=== PATIENT | male | born 2000 | race African-American/Black ===

== ENCOUNTER 2018-01-20 17:41 | Emergency (ER) | payer BC, OTHER ==
[2018-01-20] MEDS ORDERED: NA CHLORIDE 0.9% 1,000 ML ONE (18:45)
[2018-01-20] MEDS ORDERED: IBUPROFEN 400 MG TAB ONE (18:45)
[2018-01-20 19:03] LABS: Bicarbonate 26 mEq/L (21-31); Glucose Level 97 mg/dL (65-120); Potassium 3.6 mEq/L (3.6-5.0); Sodium Level 135 mEq/L (135-145)
[2018-01-20 19:06] LABS: BUN Blood Urea Nitrogen 12 mg/dL (6-20); Creatine Phosphokinase 193 IU/L (22-269); Glomerular Filtration Rate > 90 mL/min (=/>90)
--- NOTE | 2018-01-20 21:06 | EDPHYS ---
Physician Documentation [facility] Name: Sumi Mccrary Age: 17 yrs Sex: Male : 2000 Arrival Date: 01/20/2018 Time: 17:47 Bed 15 Private MD: ED Physician Wally Schultz HPI: 01/20 18:34 This 17 yrs old Black Male presents to ER via Ambulatory with complaints of Shoulder rn Pain. 18:34 The patient or guardian complains of pain. left shoulder. Onset: The symptoms/episode rn began/occurred today. Modifying factors: the symptoms are alleviated by remaining still, The symptoms are aggravated by lifting weight, movement, rotation of arm. Severity of symptoms: At their worst the symptoms were mild, in the emergency department the symptoms are unchanged. The patient has experienced similar episodes in the past. Reports thinks dislocated left shoulder at work, arm above his head, didn't go back in like it normally does, reports noted at site that had fever to 102, but feels fine, no cough/runny nose/sore throat/abd pain/vomiting/diarrhea/neck pain. . 18:34 Reports legs feel tired and cramping, but able to walk. No back injury/pain.. rn Historical: - Allergies: 17:52 No Known Allergies; hb - Home Meds: 17:52 CONCERTA Oral [Active]; hb - PMHx: 17:52 ADD/ADHD; hb - PSHx: 17:52 None; hb - Immunization history:: Adult Immunizations up to date. - Social history:: Smoking status: Patient/guardian denies using tobacco. - Family history:: not pertinent. - Hospitalizations: : No recent hospitalization is reported. ROS: 18:34 Constitutional: Negative for chills, and weight loss, Eyes: Negative for injury, pain, rn redness, and discharge, Neck: Negative for injury, pain, and swelling, Cardiovascular: Negative for chest pain, palpitations, and edema, Respiratory: Negative for shortness of breath, cough, wheezing, and pleuritic chest pain, Abdomen/GI: Negative for abdominal pain, nausea, vomiting, diarrhea, and constipation, Back: Negative for injury and pain, MS/Extremity: Negative for deformity, Skin: Negative for injury, rash, and discoloration, Neuro: Negative for headache, seizure. Exam: 18:34 Constitutional: This is a well developed, well nourished patient who is awake, alert, rn and in no acute distress. Head/Face: Normocephalic, atraumatic. Eyes: Pupils equal round and reactive to light, extra-ocular motions intact. Lids and lashes normal. Conjunctiva and sclera are non-icteric and not injected. Cornea within normal limits. Periorbital areas with no swelling, redness, or edema. Neck: Trachea midline, no thyromegaly or masses palpated, and no cervical lymphadenopathy. Supple, full range of motion without nuchal rigidity, or vertebral point tenderness. No Meningismus. Cardiovascular: tachycardic, regular, no murmur Respiratory: Lungs have equal breath sounds bilaterally, clear to auscultation and percussion. No rales, rhonchi or wheezes noted. No increased work of breathing, no retractions or nasal flaring. Abdomen/GI: Soft, non-tender, with normal bowel sounds. No distension or tympany. No guarding or rebound. No evidence of tenderness throughout. Back: No spinal tenderness. No costovertebral tenderness. Full range of motion. Skin: Warm, dry with normal turgor. Normal color with no rashes, no lesions, and no evidence of cellulitis. MS/ Extremity: Pulses equal, no cyanosis. + left shoulder/arm in sling with painful ROM, no crepitus, no skin changes Neuro: Awake and alert, GCS 15, oriented to person, place, time, and situation. Cranial nerves II-XII grossly intact. Motor strength 5/5 in all extremities. Sensory grossly intact. Cerebellar exam normal. Vital Signs: 17:49 BP 139 / 66; Pulse 136; Resp 16; Temp 101.4; Pulse Ox 100% on R/A; Weight 108.86 kg; hb Height 5 ft. 9 in. (175.26 cm); Pain 10/10; 20:27 Temp 99.7; rk2 20:30 BP 111 / 84; Pulse 107; Resp 17; Pulse Ox 99% on R/A; rk2 17:49 Body Mass Index 35.44 (108.86 kg, 175.26 cm) hb MDM: 18:11 Patient medically screened. rn 21:01 Differential diagnosis: Anterior dislocation with fracture, Anterior dislocation rn without fracture. Data reviewed: vital signs, nurses notes, lab test result(s), radiologic studies, plain films, and as a result, I will discharge patient. Counseling: I had a detailed discussion with the patient and/or guardian regarding: the historical points, exam findings, and any diagnostic results supporting the discharge/admit diagnosis, lab results, radiology results, the need for outpatient follow up, to return to the emergency department if symptoms worsen or persist or if there are any questions or concerns that arise at home. Response to treatment: the patient's symptoms have mildly improved after treatment, and as a result, I will discharge patient. Special discussion: I discussed with the patient/guardian in detail that at this point there is no indication for admission to the hospital. It is understood, however, that if the symptoms persist or worsen the patient needs to return immediately for re-evaluation. Based on the history and exam findings, there is no indication for further emergent testing or inpatient evaluation. I discussed with the patient/guardian the need to see the orthopedic surgeon for further evaluation of the symptoms. ED course: Pt with increased ROM, xray does not show dislocation, + mild subluxation with hill-sachs deformity, recommend careful at work for recurrent dislocation, and ortho f/u for elective labrum/shoulder repair. . 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 . 01/20 18:17 Order name: Flu rn 01/20 18:17 Order name: Strep rn 01/20 18:18 Order name: BMP rn 01/20 18:18 Order name: CK rn 01/20 19:03 Order name: Basic Metabolic Panel; Complete Time: 19:11 EDNJ 01/20 19:06 Order name: Creatine Phosphokinase; Complete Time: 19:11 EDNJ 01/20 18:17 Order name: XRAY Shoulder LEFT 2 view rn 01/20 18:45 Order name: XRAY Shoulder (1 View) rn 01/20 19:08 Order name: Group A Streptococcus Rapid Sc; Complete Time: 19:11 EDNJ 01/20 19:09 Order name: Influenza Screen (A ; Complete Time: 19:11 EDNJ 01/20 21:22 Order name: RAD [facility] 01/20 21:22 Order name: RAD [facility] 01/20 18:17 Order name: IV Start; Complete Time: 18:42 rn Administered Medications: 18:28 Drug: Motrin 800 mg Route: PO; rk2 20:32 Follow up: Response: No adverse reaction; Temperature is decreased rk2 18:45 Drug: NS 0.9% 1000 ml Route: IV; Rate: 1000 ml; Site: right antecubital; rk2 20:32 Follow up: Response: No adverse reaction; IV Status: Completed infusion rk2 Disposition: 01/20/18 21:06 Discharged to Home. Impression: Recurrent dislocation, left shoulder, Other subluxation of left shoulder joint, Fever, unspecified. - Condition is Stable. - Discharge Instructions: Shoulder Dislocation, Shoulder Pain. - Medication Reconciliation Form, Thank You Letter, Antibiotic Education, Prescription Opioid Use form. - Follow up: Private Physician; When: As needed; Reason: Recheck today's complaints, Re-evaluation by your physician. - Problem is new. - Symptoms have improved. Signatures: Dispatcher [employer] [facility] Wally Schultz MD MD rn Baxter, Heather, RN RN hb Kidder, Rhonda, RN RN rk2
--- NOTE | 2018-01-20 21:06 | ER ---
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 Also reports bilateral lower extremities began to feel partially numb at approx 1530. Ambulated to triage with steady gait. Transition of care: patient was not received from another setting of care. Onset of symptoms was January 20, 2018. Care prior to arrival: None. 17:50 Method Of Arrival: Ambulatory 17:50 Acuity: ADDY 3 Triage Assessment: 18:56 General: Appears uncomfortable, well developed, well nourished, Behavior is calm, rk2 cooperative. Pain: Complains of pain in left shoulder. Neuro: Level of Consciousness is alert, Oriented to person, place, time, situation. Respiratory: Airway is patent Respiratory effort is even, unlabored, Respiratory pattern is regular, symmetrical. Derm: Skin is pink, warm \T\ dry. Injury Description: Left shoulder pain. Historical: - Allergies: 17:52 No Known Allergies; - Home Meds: 17:52 CONCERTA Oral [Active]; hb - PMHx: 17:52 ADD/ADHD; hb - PSHx: 17:52 None; hb - Immunization history:: Adult Immunizations up to date. - Social history:: Smoking status: Patient/guardian denies using tobacco. - Family history:: not pertinent. - Hospitalizations: : No recent hospitalization is reported. Screenin:30 Abuse screen: Denies threats or abuse. rk2 18:30 Nutritional screening: No deficits noted. Tuberculosis screening: No symptoms or risk rk2 factors identified. Fall Risk None identified. Assessment: 19:08 Reassessment: Xray \T\ bedside... completing 2nd shoulder xray. rk2 Vital Signs: 17:49 BP 139 / 66; Pulse 136; Resp 16; Temp 101.4; Pulse Ox 100% on R/A; Weight 108.86 kg; hb Height 5 ft. 9 in. (175.26 cm); Pain 10/10; 20:27 Temp 99.7; rk2 20:30 BP 111 / 84; Pulse 107; Resp 17; Pulse Ox 99% on R/A; rk2 17:49 Body Mass Index 35.44 (108.86 kg, 175.26 cm) hb ED Course: 17:47 Patient arrived in ED. mr 17:52 Triage completed. hb 17:52 Arm band placed on right wrist. hb 18:10 Wally Schultz MD is Attending Physician. rn 18:21 Gayle Cervantes, JD is Primary Nurse. rk2 18:30 Patient has correct armband on for positive identification. Bed in low position. Call rk2 light in reach. 18:42 X-ray completed. Portable x-ray completed in exam room. Patient tolerated procedure kc2 well. 18:42 Strep Sent. ag 18:42 Flu Sent. ag 18:42 CK Sent. ag 18:42 BMP Sent. ag 18:42 Initial lab(s) drawn, by ky, sent to lab. Inserted saline lock: 20 gauge in right ag antecubital area, using aseptic technique. Blood collected. 18:46 XRAY Shoulder LEFT 2 view Sent. rk2 19:07 XRAY Shoulder (1 View) Sent. rk2 21:23 No provider procedures requiring assistance completed. IV discontinued. rk2 Administered Medications: 18:28 Drug: Motrin 800 mg Route: PO; rk2 20:32 Follow up: Response: No adverse reaction; Temperature is decreased rk2 18:45 Drug: NS 0.9% 1000 ml Route: IV; Rate: 1000 ml; Site: right antecubital; rk2 20:32 Follow up: Response: No adverse reaction; IV Status: Completed infusion rk2 Outcome: 21:06 Discharge ordered by . rn 21:23 Discharged to home ambulatory. rk2 21:23 Condition: good 21:23 Discharge instructions given to patient. 21:24 Patient left the ED. 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 Ambulated to triage with steady gait. hb
--- NOTE | 2018-01-20 21:21 | RAD REPORT ---
EXAM DESCRIPTION: RAD - Shoulder Left 2 View - 01/20/2018 6:43 pm CLINICAL HISTORY: Left shoulder pain FINDINGS: An anterior dislocation is present. No fracture is seen
--- NOTE | 2018-01-20 21:21 | RAD REPORT ---
EXAM DESCRIPTION: RAD - Shoulder 1 View - 01/20/2018 7:26 pm CLINICAL HISTORY: Right shoulder pain FINDINGS: Previously described dislocation has been reduced. No fracture is seen
[2018-01-20 21:29] VITALS: TEMP 99.7
[2018-01-20 21:31] VITALS: BP 111/84; O2SAT 99
== END 2018-01-20 21:24 | disposition home or self-care (01) ==
LOC: ER 17:41
DX: M24.412 Recurrent dislocation, left shoulder (principal); S43.082A Other subluxation of left shoulder joint, initial encounter; R50.9 Fever, unspecified; X58.XXXA Exposure to other specified factors, initial encounter; Y93.89 Activity, other specified; Y92.89 Other specified places as the place of occurrence of the external cause; Y99.0 Civilian activity done for income or pay; F90.9 Attention-deficit hyperactivity disorder, unspecified type
CPT/HCPCS: 36415; 73020; 80048; 82550; 87070; 87081; 87804; 96360; 96361; 99284; J7030

== ENCOUNTER 2023-08-26 08:12 | Emergency (ER) | payer OTHER, SELFPAY ==
--- OUTSIDE RECORDS SUMMARY | 2023-08-26 08:14 | XMS REPORT | Continuity of Care Document ---
:2000 Author Organization [facility] t Address [address] [place] [id number] Care Team Providers Name Role Phone Dougie Lechuga Attending Clinician Unavailable Problems This patient has no known problems. Allergies, Adverse Reactions, Alerts This patient has no known allergies or adverse reactions. Medications This patient has no known medications. Procedures This patient has no known procedures. Encounters Start End Encounter Admission Attending Care Care Encounter Source Date/Time Date/Time Type Type Clinicians Facility Department ID 2022-08-01 Outpatient FARIDA IQBAL [id number] [facility] 14:25:57 0811 [facility] s 2021-06-13 2021-06-13 Outpatient FARIDA Lechuga [id number] [facility] 00:00[facility]00 [facility]00:00 [facility] Results This patient has no known results.
--- NOTE | 2023-08-26 08:26 | ER ---
Nurse's Notes [facility] Name: Sumi Mccrary Age: 22 yrs Sex: Male : 2000 Arrival Date: 08/26/2023 Time: 08:12 Bed IW1 Private MD: Diagnosis: Acute frontal sinusitis Presentation: 08/26 08:22 Chief complaint: Patient states: fever, sore throat , cough X 1 week, was swabbed for iw flu/covid/strep, was negative. Coronavirus screen: Client presents with at least one sign or symptom that may indicate coronavirus-19. Ebola Screen: Patient negative for fever greater than or equal to 101.5 degrees Fahrenheit, and additional compatible Ebola Virus Disease symptoms Patient denies exposure to infectious person. Patient denies travel to an Ebola-affected area in the 21 days before illness onset. No symptoms or risks identified at this time. Initial Sepsis Screen: Does the patient meet any 2 criteria? No. Patient's initial sepsis screen is negative. Does the patient have a suspected source of infection? No. Patient's initial sepsis screen is negative. Risk Assessment: Do you want to hurt yourself or someone else? Patient reports no desire to harm self or others. Onset of symptoms was August 20, 2023. 08:22 Method Of Arrival: Ambulatory iw 08:22 Acuity: ADDY 4 iw Historical: - Allergies: 08:25 No Known Allergies; iw - PMHx: 08:25 ADD/ADHD; iw - Immunization history:: Adult Immunizations. - Social history:: Smoking status: . Screenin:26 [facility] ED Fall Risk Assessment (Adult) Score/Fall Risk Level 0 - 2 = Low Risk. Abuse iw screen: Denies threats or abuse. Denies injuries from another. Nutritional screening: No deficits noted. Tuberculosis screening: No symptoms or risk factors identified. Assessment: 08:26 General: Appears in no apparent distress. Behavior is calm, cooperative. Pain: iw Complains of pain in head. Neuro: Level of Consciousness is awake, alert, obeys commands, Oriented to person, place, time, situation, Moves all extremities. Full function. Cardiovascular: Patient's skin is warm and dry. Respiratory: Reports cough that is Respiratory effort is even, unlabored, Respiratory pattern is regular, symmetrical. Vital Signs: 08:22 Pulse 97; Resp 16; Temp 97.8; Pulse Ox 98% on R/A; iw 08:26 BP 147 / 92; iw ED Course: 08:17 Patient arrived in ED. im 08:18 [facility] jh7 08:18 Ihsan Santos MD is Attending Physician. 7 08:23 Triage completed. iw 08:23 Arm band placed on. iw 08:40 Sierra Jaimes RN is Primary Nurse. iw Administered Medications: No medications were administered Outcome: 08:25 Discharge ordered by . 7 08:43 Patient left the ED. iw Signatures: Sierra Jaimes RN RN iw Diane Lance FNP FURNITURE SERVICER [facility] Alise Garland Corrections: (The following items were deleted from the chart) 08:27 08:22 BP 171 / 96; Pulse 97bpm; Resp 16bpm; Pulse Ox 98% RA; Temp 97.8F; iw iw
--- NOTE | 2023-08-26 08:26 | EDPHYS ---
Physician Documentation [facility] Name: Sumi Mccrary Age: 22 yrs Sex: Male : 2000 Arrival Date: 08/26/2023 Time: 08:12 Bed IW1 Private MD: ED Physician Ihsan Santos HPI: 08/26 08:25 This 22 yrs old Black Male presents to ER via Ambulatory with complaints of Flu jh7 Symptoms. 08:25 Onset: The symptoms/episode began/occurred 1 week(s) ago. Associated signs and jh7 symptoms: Pertinent positives: congestion, cough, headache, sore throat, Pertinent negatives: abdominal pain, chest pain, shortness of breath. Patient tested negative for COVID, flu, and strep yesterday. Was prescribed nasal spray and states it has not helped. Denies fever, but reports sinus congestion, facial pain, and thick mucus. States he is starting to feel worse.. Historical: - Allergies: 08:25 No Known Allergies; iw - PMHx: 08:25 ADD/ADHD; iw - Immunization history:: Adult Immunizations. - Social history:: Smoking status: . ROS: 08:25 Eyes: Negative for injury, pain, redness, and discharge, Neck: Negative for injury, jh7 pain, and swelling, Cardiovascular: Negative for chest pain, palpitations, and edema, Abdomen/GI: Negative for abdominal pain, nausea, vomiting, diarrhea, and constipation, Back: Negative for injury and pain, MS/Extremity: Negative for injury and deformity, Skin: Negative for injury, rash, and discoloration, Neuro: Negative for headache, weakness, numbness, tingling, and seizure, 08:25 Constitutional: Positive for body aches, fatigue, malaise, 08:25 ENT: Positive for sinus congestion, sinus pain, sore throat, 08:25 Respiratory: Positive for cough, Negative for shortness of breath, wheezing, 08:25 All other systems are negative, Exam: 08:25 Constitutional: This is a well developed, well nourished patient who is awake, alert, jh7 and in no acute distress. Head/Face: Normocephalic, atraumatic. Neck: Trachea midline, no thyromegaly or masses palpated, and no cervical lymphadenopathy. Supple, full range of motion without nuchal rigidity, or vertebral point tenderness. No Meningismus. Cardiovascular: Regular rate and rhythm with a normal S1 and S2. No gallops, murmurs, or rubs. Normal PMI, no JVD. No pulse deficits. Respiratory: Lungs have equal breath sounds bilaterally, clear to auscultation and percussion. No rales, rhonchi or wheezes noted. No increased work of breathing, no retractions or nasal flaring. Abdomen/GI: Soft, non-tender, with normal bowel sounds. No distension or tympany. No guarding or rebound. No evidence of tenderness throughout. Back: No spinal tenderness. No costovertebral tenderness. Full range of motion. Skin: Warm, dry with normal turgor. Normal color with no rashes, no lesions, and no evidence of cellulitis. MS/ Extremity: Pulses equal, no cyanosis. Neurovascular intact. Full, normal range of motion. Neuro: Awake and alert, GCS 15, oriented to person, place, time, and situation. Motor strength 5/5 in all extremities. Sensory grossly intact. Normal gait. 08:25 ENT: Nose: nasal drainage, and is seen coming from both nares, that is purulent, Frontal sinus tenderness to palpation. Vital Signs: 08:22 Pulse 97; Resp 16; Temp 97.8; Pulse Ox 98% on R/A; iw 08:26 BP 147 / 92; iw MDM: 08:18 Patient medically screened. [facility] 08:20 Differential diagnosis: viral Infection, bacterial infection, URI, Acute sinusitis. [facility] Data reviewed: vital signs, nurses notes. Counseling: I had a detailed discussion with the patient and/or guardian regarding the historical points, exam findings, and any diagnostic results supporting the discharge/admit diagnosis, to return to the emergency department if symptoms worsen or persist or if there are any questions or concerns that arise at home. Special discussion: Antibiotics prescribed due to the progression and duration of symptoms.. Administered Medications: No medications were administered Disposition Summary: 08/26/23 08:25 Discharge Ordered Notes: Location: Home [facility] Problem: new [facility] Symptoms: are unchanged [facility] Condition: Stable [facility] Diagnosis - Acute frontal sinusitis [facility] Followup: [facility] - With: Private Physician - When: 2 - 3 days - Reason: Recheck today's complaints Discharge Instructions: - Discharge Summary Sheet [facility] - Sinusitis, Adult [facility] - How to Perform a Sinus Rinse [facility] Forms: - Work release form iw - Medication Reconciliation Form [facility] - Thank You Letter [facility] - Antibiotic Education [facility] - Patient Portal Instructions [facility] - Leadership Thank You Letter [facility] Prescriptions: - Bromfed DM 2-30-10 mg/5 mL Oral syrup - administer 10 milliliter ORAL route 4 times per day As needed as needed for [facility] sinus symptoms; 240 milliliter; Refills: 0, Product Selection Permitted - Amoxicillin 875 mg Oral Tablet - take 1 tablet ORAL route every 12 hours for 10 days; 20 tablet; Refills: 0, [facility] Product Selection Permitted Signatures: Sierra Jaimes, RN RN Diane Guardado, PLANT DIRECTOR PLANT DIRECTOR [facility]
== END 2023-08-26 08:43 | disposition home or self-care (01) ==
LOC: ER 08:12
DX: J01.10 Acute frontal sinusitis, unspecified (principal)